=== PATIENT | female | born 1975 | race African-American/Black ===

== ENCOUNTER 2018-08-22 11:47 | Outpatient (CLI) | payer OTHER, SELFPAY ==
[2018-08-22 15:23] LABS: TSH 7.56 uIU/mL (0.358-3.74)
== END 2018-08-22 12:07 ==
PROVIDERS: Visit Provider Internal Medicine
DX: E03.9 Hypothyroidism, unspecified (principal)
CPT/HCPCS: 36415; 84443

== ENCOUNTER 2018-11-03 10:26 | Outpatient (CLI) | payer OTHER, SELFPAY ==
[2018-11-03 12:07] LABS: FREE T4 1.07 ng/dL (0.76-1.46); TSH 2.33 uIU/mL (0.358-3.74)
== END 2018-11-03 10:46 ==
PROVIDERS: Family Medicine; Visit Provider Internal Medicine
DX: E03.9 Hypothyroidism, unspecified (principal)
CPT/HCPCS: 36415; 84439; 84443